=== PATIENT | female | born 1970 | race Caucasian/White ===

== ENCOUNTER → 2017-05-07 06:55 | Outpatient (CLI) | payer OTHER, SELFPAY ==
--- NOTE | 2017-05-07 10:18 | NEURO ---
NCS and/or EMG Patient Report Ordering Doctor: Brian Aldrich DATE OF SERVICE: 05/07/17 This is a left upper extremity EMG and nerve conduction study performed on this 47-year-old female with remote bilateral carpal tunnel repair, for the past year while asleep she awakens with a cold numb left arm associated with swelling. Digits 4 and 5 on the left arm are affected with numbness and tingling as well as pain in the elbow. She is healthy with no history of diabetes. Does have some neck discomfort but denies overt neck pain. Left upper extremity sensory and motor nerve conduction studies performed demonstrating mild prolongation of the median motor distal latency with preservation of amplitude and conduction velocity. The median sensory responses normal. The ulnar motor and sensory responses normal and the radial sensory responses normal. The ulnar F wave is mildly prolonged. Left upper extremity needle electromyography is performed. Muscles evaluated included the first dorsal interosseous, adductor digitorum brevis, brachioradialis, biceps, triceps and deltoid muscles. All muscles demonstrated normal insertional activity with absence of pathologic spontaneous activity. Motor unit potential recruitment pattern and amplitude was normal. 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
== END ==
PROVIDERS: Family Provider Family Medicine; PCP Family Medicine; Visit Provider Family Medicine
DX: R20.2 Paresthesia of skin (principal)
CPT/HCPCS: 95886; 95909

== ENCOUNTER → 2019-08-02 15:35 | Outpatient (CLI) | payer OTHER, SELFPAY ==
[2015-02-01 20:09] VITALS: BMI 46.4
[2019-08-02 17:49] LABS: Absolute Lymphocyte Count 1.68 X10^3/uL (0.83-4.51); Absolute Neutrophil Count 4.2 X10^3/uL (2.0-7.7); Basophil# 0.03 X10^3/uL; Basophil% 0.5 % (0-1); Eosinophil# 0.28 X10^3/uL; Eosinophils% 4.2 % (0-5); Hematocrit 38.9 % (37-47); Lymphocyte # 1.68 X10^3/ul (4.0); Lymphocyte % 25.3 % (19-41); Mean Corp Hgb Conc 33.4 g/dL (32-36); Mean Corpuscular Hgb 28.6 pg (27.0-32.0); Mean Corpuscular Volume 85.7 fL (81-99); Mean Platelet Vol. 10.6 fl (6.2-12.0); Monocyte# 0.41 X10^3/uL; Monocyte% 6.2 % (0-10); NRBC Flagged by Analyzer 0 % (0-5); Neutrophil # 4.19 X10^3/uL (2.7-7.7); Neutrophil % 63.2 % (47-70); Platelet Count 323 K/mm3 (150-450); RBC Distribution Width CV 13.3 % (11.6-14.6); RBC Distribution Width SD 40.7 fl (35.1-43.9); Red Blood Count 4.54 M/mm3 (4.2-5.4); White Blood Count 6.6 K/mm3 (4.4-11.0)
[2019-08-02 18:16] LABS: T3 Total - Triiodothyronine 1.29 ng/mL (0.6-1.81); Vitamin D,25 Hydroxy 23.8 ng/mL
[2019-08-02 18:19] LABS: Ferritin 55 ng/mL (8-252); Free T3 2.9 pg/mL (2.18-3.98); T4 Free Direct 1.12 ng/dL (0.76-1.46); Thyroid Stim Hormone (TSH) 1.06 uIU/mL (0.358-3.74)
== END ==
PROVIDERS: PCP Family Medicine; Visit Provider Family Medicine
DX: R73.9 Hyperglycemia, unspecified (principal); E55.9 Vitamin D deficiency, unspecified; L65.9 Nonscarring hair loss, unspecified; D64.9 Anemia, unspecified
CPT/HCPCS: 36415; 82306; 82728; 84436; 84439; 84443; 84480; 84481; 85025

== ENCOUNTER 2019-09-01 13:04 | Outpatient (RCR) | payer OTHER, SELFPAY | END 2019-09-17 23:59 | LOC: DC 13:04 | PROVIDERS: PCP Family Medicine; Visit Provider Family Medicine | DX: Z71.3 Dietary counseling and surveillance (principal); E11.9 Type 2 diabetes mellitus without complications | CPT/HCPCS: G0108 ==

== ENCOUNTER 2019-10-06 13:00 | Outpatient (RCR) | payer OTHER, SELFPAY ==
[2015-02-01 20:09] VITALS: BMI 46.4
== END 2019-10-18 23:59 ==
LOC: DC 13:00
PROVIDERS: PCP Family Medicine; Visit Provider Family Medicine
DX: Z71.3 Dietary counseling and surveillance (principal); E11.9 Type 2 diabetes mellitus without complications
CPT/HCPCS: 97802; G0108

== ENCOUNTER 2019-10-20 13:26 | Outpatient (RCR) | payer OTHER, SELFPAY ==
[2015-02-01 20:09] VITALS: BMI 46.4
== END 2019-10-20 23:59 | disposition home or self-care (01) ==
LOC: DC 13:26
PROVIDERS: PCP Family Medicine; Visit Provider Family Medicine
DX: Z71.3 Dietary counseling and surveillance (principal); E11.9 Type 2 diabetes mellitus without complications
CPT/HCPCS: 97803

== ENCOUNTER 2022-01-04 08:33 | Outpatient (CLI) | payer BC, SELFPAY ==
[2022-01-04 09:59] LABS: Absolute Lymphocyte Count 1.64 X10^3/uL (0.83-4.51); Absolute Neutrophil Count 5.3 X10^3/uL (2.0-7.7); Basophil# 0.04 X10^3/uL; Basophil% 0.5 % (0-1); Eosinophils% 2.6 % (0-5); Hemoglobin 13.1 g/dL (12.0-15.0); Lymphocyte # 1.64 X10^3/ul (0.83-4.51); Lymphocyte % 21.4 % (19-41); Mean Corp Hgb Conc 32.8 g/dL (32-36); Mean Corpuscular Hgb 27.5 pg (27.0-32.0); Mean Corpuscular Volume 83.9 fL (81-99); Mean Platelet Vol. 10.9 fl (6.2-12.0); Monocyte# 0.46 X10^3/uL; NRBC Flagged by Analyzer 0 % (0-5); Neutrophil # 5.29 X10^3/uL (2.7-7.7); Platelet Count 290 K/mm3 (150-450); RBC Distribution Width CV 13.7 % (11.6-14.6); RBC Distribution Width SD 41.6 fl (35.1-43.9); Red Blood Count 4.77 M/mm3 (4.2-5.4); White Blood Count 7.7 K/mm3 (4.4-11.0)
[2022-01-04 10:30] LABS: Microalbumin,Random Urine 9.5 mg/L (NO RANGE EST.); Microalbumin:Creatinine Ratio 21.2 mg/g CRE (<30 mg/g CRE)
[2022-01-04 10:43] LABS: ALB/GLOB Ratio 0.8 RATIO (0.9-2.4); AST(SGOT) 12 U/L (15-37); Alanine Aminotransfer ALT/SGPT 29 U/L (13-56); Albumin, Serum 3.3 g/dL (3.2-5.0); Alkaline Phosphatase 95 U/L (45-117); Anion Gap 7 (5-15); BUN 12 mg/dL (7-18); Calcium,Total 8.6 mg/dL (8.5-10.1); Chloride 105 mmol/L (98-107); Cholesterol 152 mg/dL (200); Creatinine, Serum 0.67 mg/dL (0.55-1.02); EST Glomerular Filtration Rate 99 mL/min (>60); Est Glom Filt Rate - Afr Amer 120 mL/min (>60); Glucose 148 mg/dL (74-106); High Density Lipoprotein 43 mg/dL; Potassium 4.2 mmol/L (3.5-5.1); Protein, Total 7.3 g/dL (6.4-8.2); Sodium Level 137 mmol/L (136-145); Thyroid Stim Hormone (TSH) 1.17 uIU/mL (0.358-3.74); Triglycerides 125 mg/dL; Very Low Density Lipoprotein 25 mg/dL (5-40)
[2022-01-04 13:47] LABS: Vitamin D,25 Hydroxy 24.9 ng/mL
== END 2022-01-04 23:59 | disposition home or self-care (01) ==
LOC: MTLAB 08:36
PROVIDERS: PCP Family Medicine; Referring Provider Family Medicine; Visit Provider Family Medicine
DX: Z00.00 Encounter for general adult medical examination without abnormal findings (principal); E11.9 Type 2 diabetes mellitus without complications; E55.9 Vitamin D deficiency, unspecified
CPT/HCPCS: 36415; 80053; 80061; 82043; 82306; 82570; 84443; 85025

== ENCOUNTER → 2022-12-24 | Outpatient (CLI) | payer BC, SELFPAY ==
[2022-12-24 12:17] LABS: Absolute Lymphocyte Count 1.54 X10^3/uL (0.83-4.51); Absolute Neutrophil Count 5.5 X10^3/uL (2.0-7.7); Basophil# 0.02 X10^3/uL; Basophil% 0.3 % (0-1); Eosinophil# 0.17 X10^3/uL; Eosinophils% 2.2 % (0-5); Hematocrit 39.6 % (37-47); Lymphocyte # 1.54 X10^3/ul (0.83-4.51); Lymphocyte % 19.9 % (19-41); Mean Corp Hgb Conc 32.8 g/dL (32-36); Mean Corpuscular Hgb 28.3 pg (27.0-32.0); Mean Corpuscular Volume 86.1 fL (81-99); Mean Platelet Vol. 10.8 fl (6.2-12.0); Monocyte# 0.43 X10^3/uL; Monocyte% 5.6 % (0-10); NRBC Flagged by Analyzer 0 % (0-5); Neutrophil # 5.53 X10^3/uL (2.7-7.7); Neutrophil % 71.6 % (47-70); Platelet Count 279 K/mm3 (150-450); RBC Distribution Width CV 13.9 % (11.6-14.6); RBC Distribution Width SD 42.8 fl (35.1-43.9); White Blood Count 7.7 K/mm3 (4.4-11.0)
[2022-12-24 12:56] LABS: ALB/GLOB Ratio 0.8 RATIO (0.9-2.4); AST(SGOT) 12 U/L (15-37); Alanine Aminotransfer ALT/SGPT 23 U/L (13-56); Alkaline Phosphatase 84 U/L (45-117); Anion Gap 5 (5-15); BUN 9 mg/dL (7-18); Calcium,Total 8.4 mg/dL (8.5-10.1); Chloride 105 mmol/L (98-107); Cholesterol 118 mg/dL (200); Creatinine, Serum 0.64 mg/dL (0.55-1.02); EST Glomerular Filtration Rate 103 mL/min (>60); Est Glom Filt Rate - Afr Amer 125 mL/min (>60); Globulin 3.6 g/dL (2.2-4.2); Glucose 233 mg/dL (74-106); High Density Lipoprotein 41 mg/dL; Potassium 4.8 mmol/L (3.5-5.1); Protein, Total 6.6 g/dL (6.4-8.2); Sodium Level 136 mmol/L (136-145); Thyroid Stim Hormone (TSH) 1.14 uIU/mL (0.358-3.74); Triglycerides 159 mg/dL; Very Low Density Lipoprotein 32 mg/dL (5-40)
== END | disposition home or self-care (01) ==
LOC: BFHLAB 09:03
PROVIDERS: PCP Family Medicine; Visit Provider Family Medicine
DX: Z00.00 Encounter for general adult medical examination without abnormal findings (principal); E11.9 Type 2 diabetes mellitus without complications
CPT/HCPCS: 36415; 80053; 80061; 84443; 85025

== ENCOUNTER 2023-05-15 06:27 | Day surgery (SDC) | payer BC, SELFPAY ==
--- NOTE | 2023-05-06 07:37 | EKG12_ITS ---
Test Reason : PREOP Blood Pressure : / mmHG Vent. Rate : 085 BPM Atrial Rate : 085 BPM P-R Int : 152 ms QRS Dur : 076 ms QT Int : 376 ms P-R-T Axes : 056 -02 025 degrees QTc Int : 447 ms Normal sinus rhythm Normal ECG Confirmed by PEBBLES MOON, JUAN ([id number]), scientific publications editor ANNALEE ESPINOZA ([id number]) on 05/07/2023 8:25:55 AM Referred By: Marty Mike Confirmed By:JUAN ROGEL MD
[2023-05-06 08:13] LABS: Absolute Lymphocyte Count 1.56 X10^3/uL (0.83-4.51); Basophil# 0.03 X10^3/uL; Basophil% 0.5 % (0-1); Eosinophil# 0.22 X10^3/uL; Eosinophils% 3.5 % (0-5); Hematocrit 37.8 % (37-47); Hemoglobin 12.4 g/dL (12.0-15.0); Lymphocyte # 1.56 X10^3/ul (0.83-4.51); Lymphocyte % 25.1 % (19-41); Mean Corp Hgb Conc 32.8 g/dL (32-36); Mean Corpuscular Hgb 27.7 pg (27.0-32.0); Mean Corpuscular Volume 84.6 fL (81-99); Mean Platelet Vol. 10.8 fl (6.2-12.0); Monocyte# 0.38 X10^3/uL; Monocyte% 6.1 % (0-10); NRBC Flagged by Analyzer 0 % (0-5); Neutrophil % 64.3 % (47-70); Platelet Count 311 K/mm3 (150-450); RBC Distribution Width CV 13.4 % (11.6-14.6); RBC Distribution Width SD 41.4 fl (35.1-43.9); Red Blood Count 4.47 M/mm3 (4.2-5.4); White Blood Count 6.2 K/mm3 (4.4-11.0)
[2023-05-06 08:32] LABS: Hemoglobin A1c 7.1 % (3.8-5.6)
[2023-05-06 08:34] LABS: Anion Gap 6 (5-15); BUN 10 mg/dL (7-18); BUN/Creat Ratio 12.6 RATIO (10-20); Calcium,Total 8.8 mg/dL (8.5-10.1); Chloride 108 mmol/L (98-107); EST Glomerular Filtration Rate 81 mL/min (>60); Est Glom Filt Rate - Afr Amer 98 mL/min (>60); Glucose 271 mg/dL (74-106); Potassium 4.1 mmol/L (3.5-5.1); Sodium Level 138 mmol/L (136-145)
[2023-05-15] VITALS (10 sets, daily range): BP systolic 113–151; BP diastolic 62–89; PULSE 86–109; RESP 16–18; TEMP 36.2–36.4; O2SAT 93–96; BMI 44.5
[2023-05-15] MEDS: Lactated Ringers 1,000 ML 15 ML IV ×2 (07:03→09:50)
[2023-05-15 07:07] LABS: Internal QC Validated? YES +Cl - CLEAR BKGD
[2023-05-15 07:08] LABS: Pregnancy, Urine Negative Negative
[2023-05-15] MEDS: Cefazolin 2 GM in 0.9% Normal Saline (100mL Bag) 100 ML IV (08:13)
[2023-05-15 08:27] LABS: Bedside Glucose 146 mg/dL (74-106)
--- NOTE | 2023-05-15 09:22 | PCM.OPRPT ---
Report of Operation Date of Procedure: 05/15/23 Description of Surgical Findings:: Preoperative diagnosis: Right elbow lateral epicondylitis Postoperative diagnosis: Right elbow lateral epicondylitis Procedure: Right elbow lateral epicondylar debridement Surgeon: Marty Mike DO public health assistant: Verónica Courtney PA-C Anesthesia General LMA with supraclavicular block Ctrs: Stevie Paige CRNA Estimated blood loss: 10 cc Urine output: None recorded IV fluids: Per anesthesia record Specimen: None Complications: None apparent Implants: None Packing/drains: None Indications: This is a 53-year-old female seen in the outpatient setting for recalcitrant right lateral epicondylitis that unfortunately is failed extensive physical therapy, home exercise, corticosteroid injections. We discussed surgical intervention for a lateral epicondylar debridement. I reviewed the risks, benefits, alternatives to procedure with the patient and she agreed to proceed. Risks included but were not limited to bleeding, infection, loss of life or limb, nonhealing tendon or wounds, persistent pain, stiffness, neurovascular injury, DVT or PE. Patient expressed understanding of these risks and wished to proceed with surgery. Procedure details: Patient was greeted in the same-day surgery holding area. She was identified by name, medical record number, and date of . The operative extremity was marked. All questions were answered to the patient's satisfaction. A supraclavicular block was then administered by anesthesia staff prior to the procedure. At time of her procedure, patient was brought the operative suite positioned supine a standard operating table. Hand table was attached to patient's right side. A well-padded pneumatic tourniquet was applied to the right upper arm. General anesthesia was induced and LMA was placed. We spun the bed 90 degrees. We prepped and draped the right upper extremity in normal, sterile orthopedic fashion. We performed timeout with all parties in attendance in agreement with the side, site, operation be performed. No concerns voiced elected proceed with surgery. 2 g Ancef was administered IV prior to tourniquet placed by anesthesia staff. I first exsanguinated the right upper extremity with Esmarch bandage. Tourniquet inflated to 250 mmHg which made up for 18 minutes. Esmarch was removed. Standard longitudinal approach overlying the anterior radiocapitellar joint was made sharply through skin and subcutaneous tissue approximately 3 cm in length. Full-thickness skin flaps were developed down to the level of the common extensor origin fascia. The interval between the extensor digitorum commonness and extensor carpi radialis longus was identified. Fascia was split. I then developed the interval and identify the underlying extensor carpi radialis brevis tendon. Difficult tendon attic appearance is noted of the ECRB near its insertion. Approximately 1 cm of the tendon attic portion of the ECRB was then sharply excised with a 15 blade scalpel. The underlying joint capsule was left intact. The epicondylar attachment was debrided with a combination of rasp and rongeur. I then performed microfracture at the insertion point with a 0.045 inch K wire with several perforations. Wound was copiously irrigated normal saline solution. I reapproximated the fascial interval with a running, locking 0 Vicryl suture. Tourniquet was deflated. Hemostasis was achieved with Bovie cautery. Fatty layer was reapproximated with interrupted [id number] 0 Vicryl suture. Dermis was reapproximated with a buried 3-0 Vicryl suture. Skin was finally reapproximated with a subcuticular 4-0 Monocryl and Dermabond. A bulky sterile compression dressing was applied. A well-padded short arm wrist splint was applied with the wrist slightly in extension. Soft dressing was applied to the elbow. Patient was awoken from anesthesia. She was safely extubated and transferred to her gurney and then subsequently to PACU in stable condition. Need for skilled child and youth program assistant: Verónica Courtney PA-C was critical to the outcome of the case. During the course of the procedure the physician child and youth program assistant played a vital role. Her intimate knowledge of my steps in the procedure aided in safe and expedient completion of the procedure. The PA played a vital role in positioning particularly in obtaining the appropriate positioning. The PA was also vital in the retraction of soft tissues during the exposure and protecting vital structures. She also played a vital role in closure and splint application with my direct supervision. Postoperative plan: Nonweightbearing to the operative extremity. Gentle range of motion as tolerated to the elbow. Maintain wrist splint until follow-up. She may remove the elbow dressing in 3 days. She is okay to shower but must cover the wrist splint. She will follow-up in 2 weeks for wound check, splint removal. We will initiate physical therapy in 2 weeks. Prescription for hydrocodone provided. Tylenol and ibuprofen encouraged. Aspirin 81 mg twice daily for DVT prophylaxis x 14 days starting on postoperative day #1.
[2023-05-15 09:39] LABS: Bedside Glucose 126 mg/dL (74-106)
== END 2023-05-15 11:32 | disposition home or self-care (01) ==
LOC: SDC 06:28 → AC 06:29
PROVIDERS: Anesthesiology; PCP Family Medicine; Referring Provider Student in an Organized Health Care Education/Training Program; Visit Provider Student in an Organized Health Care Education/Training Program
PROC: (CPT 24357; principal; 2023-05-15 07:50)
DX: M77.11 Lateral epicondylitis, right elbow (principal); E11.9 Type 2 diabetes mellitus without complications; Z87.448 Personal history of other diseases of urinary system; Z90.49 Acquired absence of other specified parts of digestive tract; Z90.5 Acquired absence of kidney
CPT/HCPCS: 24359; 01712; 36415; 80048; 81025; 82962; 83036; 85025; 93005; J7120; J2405

== ENCOUNTER → 2023-08-11 | Outpatient (CLI) | payer BC, SELFPAY ==
--- NOTE | 2023-08-11 07:48 | BI_ITS ---
MAMMOGRAPHY - BILATERAL SCREENING REASON FOR EXAM: Female, 53 years old. Routine annual screening examination. PERTINENT HISTORY: Non-contributory. TECHNIQUE: Digital bilateral breast ricardo (3D mammographic acquisition) in the CC and MLO projections. 2-D mediolateral oblique (MLO) and craniocaudad (CC) views of both breasts were obtained. CAD: Full Field Digital Mammography with Computer Added Detection was performed. COMPARISON: Comparison is made with prior outside examination dated February 04, 2019. FINDINGS: Breast Composition: There are scattered areas of fibroglandular density. There are no dominant masses or suspicious calcifications. Stable fat-containing bilateral axillary lymph nodes. No other significant abnormalities are identified. There has been no significant change since the prior study. BI/SCRN MAMM (CAD)W/RICARDO BILAT IMPRESSION: Stable bilateral screening mammogram. Yearly follow-up mammogram recommended. (A) ASSESSMENT CATEGORY: BIRADS Category 2: Benign. A letter regarding these results will be sent to the patient by the facility within 30 days. Approximately 10% of breast cancers are not detected by mammography. A normal mammogram should not delay biopsy of a clinically suspicious abnormality. [id number] Electronically Signed: Atif Bermeo MD at 9:32 EDT ,
== END | disposition home or self-care (01) ==
LOC: OPBI 07:46
PROVIDERS: PCP Family Medicine; Referring Provider Family Medicine; Visit Provider Family Medicine
DX: Z12.31 Encounter for screening mammogram for malignant neoplasm of breast (principal)
CPT/HCPCS: 77063; 77067

== ENCOUNTER 2023-10-07 19:57 | Emergency (ER) | payer BC, SELFPAY ==
[2023-10-07 19:58] VITALS: BP 169/87; PULSE 94; RESP 18; TEMP 35.9; O2SAT 100; BMI 47.0
--- NOTE | 2023-10-07 21:28 | EX.ED.GENINJ ---
HPI History of Present Illness Chief Complaint: Bite Informant: patient Onset/Context/Timing Onset: Today Quality of Pain: Stabbing and Throbbing Location: Bilateral ears and bilateral calves Worsened by: Nothing Relieved by: Nothing Associated Symptoms Associated Symptoms: Negative for Parasthesias, Weakness, Loss of function, Inability to ambulate, Loss of consciousness or Amnesia Narrative Narrative: Patient presents with multiple yellowjacket stings that occurred today. Patient states he was mowing the yard when she went over a nest. Patient states she was stung on both the ears and both calves. Patient denies any difficulty breathing or difficulty swallowing. Patient states her pain is stabbing and throbbing. Patient states it waxes and wanes. Patient states nothing makes it better and nothing makes it worse. Patient is unsure of her last tetanus. Patient denies any fevers or chills. Patient denies any chest pain. PFSH PFSH Medical History Tennis elbow Diabetes History of renal disease Non-smoker Home Medications ?Medication ?Instructions ?Recorded ?Last Taken ?Type albuterol sulfate 90 mcg/actuation 1 - 2 puff inhalation Q4H PRN PRN 02/03/15 Unknown Rx aerosol inhaler (Ventolin HFA) Sob &/Or Wheezing ##1 dulaglutide 3 mg/0.5 mL 3 mg subcut GUEVARA 05/09/23 05/11/23 History subcutaneous pen injector (Trulicity) ascorbate calcium (vitamin C) 500 500 mg PO DAILY 05/15/23 05/10/23 History mg tablet cholecalciferol (vitamin D3) 25 25 mcg PO BID 05/15/23 05/10/23 History mcg (1,000 unit) tablet (Vitamin D3) floragen PO DAILY womens probiotic 05/15/23 05/10/23 History Allergy/AdvReac Type Severity Reaction Status Date / Time hydrocodone bitartrate (From AdvReac Nausea/Vom/ Verified 10/07/23 19:58 Vicodin) Diarrhea Surgical History History of bilateral carpal tunnel release History of decompression of ulnar nerve History of History of kidney removal History of tonsillectomy History of cholecystectomy Social History Smoking Status: Never smoker ROS ROS ED Constitutional Constitutional ED: Denies chills or fever(s) Eyes Eyes: Denies blurry vision or change in vision ENT ENT ED: Denies rhinorrhea or sore throat Cardiovascular Cardiovascular: Denies chest pain or palpitations Respiratory/Chest Respiratory/Chest: Denies cough or dyspnea Gastrointestinal Gastrointestinal: Denies nausea or vomiting Genitourinary Genitourinary ED: Denies dysuria or hematuria Musculoskeletal Musculoskeletal: Denies back pain or neck pain Integumentary Denies abscess or rash Neurologic Neurologic: Reports headache(s); Denies weakness Allergic/Immunologic Allergic/Immunologic ED: Denies mouth swelling or urticaria EXAM Physical Exam Const Vital Signs: 10/07/23 19:58 Temperature 96.7 F L Temperature Source Temporal Pulse Rate 94 Respiratory Rate 18 Blood Pressure 169/87 H Blood Pressure Mean 114 Pulse Ox 100 Oxygen Delivery Method Room Air Positive well nourished and well developed General Appearance ED: well developed and NAD Neck full ROM Neuro oriented x3, CN's II-XII intact bilaterally, moves all extremities, no focal motor deficits and no sensory deficits noted [place] Coma Scale: document GCS findings Spontaneous Obeys Commands Oriented 15 Sensorium / Orientation: alert Motor Exam: strength 5/5 throughout Psych mental status grossly normal and thought process normal Skin Skin Narrative: There is edema and erythema of the external ears bilaterally. There is mild warmth. There is no vesicles or pustules noted. There are no stingers noted. There is tenderness over the ears bilaterally. There is also some mild erythema over the calves bilaterally. There is no tenderness over these sting sites. There is no evidence of any abscess. There is no fluctuance or drainage noted. MDM MDM MDM Narrative Medical decision making narrative: Patient was advised that these are local reactions to multiple bee stings and not an allergic reaction. Patient was given a dose of Benadryl and ibuprofen here. Patient was given a tetanus booster. Patient was instructed to use [id number]-[id number] Benadryl and ibuprofen as needed for pain and swelling. Patient was instructed to use ice to the area. Patient was instructed to follow-up with her primary care physician in 5 to 7 days. Patient understood and was agreeable with the plan. All questions were answered. Discharge Plan Triage Chief Complaint: Bite ED Provider: Dung Rodriguez Dx/Rx/DC Orders Clinical Impression: Local reaction to hymenoptera sting, Type 2 diabetes mellitus Instructions: ED Insect Sting, Local Reaction Prescriptions: No Action albuterol sulfate [Ventolin HFA] 1 INHALER inhaler 1 - 2 puff inhalation Q4H PRN PRN (Reason: Sob &/Or Wheezing) Qty: 1 0RF Patient Comments: helps breathing Trulicity 3 mg/0.5 mL pen injector 3 mg subcut GUEVARA Patient Comments: TAKES ON SUNDAYS cholecalciferol (vitamin D3) [Vitamin D3] 25 mcg (1,000 unit) tablet 25 mcg PO BID floragen PO DAILY ascorbate calcium (vitamin C) 500 mg tablet 500 mg PO DAILY Primary Care Provider: Brian Aldrich Referrals: Brian Aldrich DO [Primary Care Provider] - 5-7 Days Print Language: Divehi Disposition Disposition: Home, Self Care
[2023-10-07] MEDS: Ibuprofen 400 MG Tablet 800 MG PO (21:34)
[2023-10-07] MEDS: Diphth,Pertuss(Acell),Tet Vac 0.5 ML Vial IM (21:34)
[2023-10-07] MEDS: DiphenhydrAMINE 25 MG Capsule PO (21:34)
[2023-10-07 21:49] VITALS: BP 174/98; PULSE 94; RESP 87; TEMP 36.1; O2SAT 94
== END 2023-10-07 21:51 | disposition home or self-care (01) ==
PROVIDERS: Emergency Provider Emergency Medicine; PCP Family Medicine; Visit Provider Emergency Medicine
DX: H92.03 Otalgia, bilateral (principal); E11.9 Type 2 diabetes mellitus without complications; Z79.85 Long-term (current) use of injectable non-insulin antidiabetic drugs; Z90.49 Acquired absence of other specified parts of digestive tract; Z23 Encounter for immunization; T63.481A Toxic effect of venom of other arthropod, accidental (unintentional), initial encounter; M79.661 Pain in right lower leg; M79.662 Pain in left lower leg
CPT/HCPCS: 90715; 99282

== ENCOUNTER → 2024-01-21 | Outpatient (CLI) | payer BC, SELFPAY ==
--- NOTE | 2024-01-21 16:06 | RAD_ITS ---
HISTORY: Early satiety, chronic nausea. TECHNIQUE: XR Abdomen 1 View. COMPARISON: None. FINDINGS: BOWEL GAS PATTERN: No dilated bowel loops identified. Moderate stool in the colon. FREE AIR: Not assessed on supine view. CALCIFICATIONS: Small pelvic phleboliths observed. BONES: Mild degenerative change. SOFT TISSUES: Right upper quadrant surgical clips. Enlarged liver. RAD/Abdomen Single View IMPRESSION: Moderate stool in the colon. Hepatomegaly. Electronically Signed: Naina Cordoba MD at 9:08 EST ,
[2024-01-21 17:55] LABS: Absolute Lymphocyte Count 2.18 X10^3/uL (0.83-4.51); Basophil# 0.03 X10^3/uL; Basophil% 0.4 % (0-1); Eosinophil# 0.25 X10^3/uL; Eosinophils% 3.1 % (0-5); Hematocrit 38.1 % (37-47); Hemoglobin 12.4 g/dL (12.0-15.0); Lymphocyte # 2.18 X10^3/ul (0.83-4.51); Lymphocyte % 27.2 % (19-41); Mean Corp Hgb Conc 32.5 g/dL (32-36); Mean Corpuscular Hgb 27.4 pg (27.0-32.0); Mean Corpuscular Volume 84.1 fL (81-99); Monocyte# 0.52 X10^3/uL; Monocyte% 6.5 % (0-10); NRBC Flagged by Analyzer 0 % (0-5); Neutrophil # 5.02 X10^3/uL (2.7-7.7); Neutrophil % 62.6 % (47-70); Platelet Count 321 K/mm3 (150-450); RBC Distribution Width CV 14.3 % (11.6-14.6); RBC Distribution Width SD 44.1 fl (35.1-43.9); Red Blood Count 4.53 M/mm3 (4.2-5.4)
[2024-01-21 18:26] LABS: ALB/GLOB Ratio 0.9 RATIO (0.9-2.4); AST(SGOT) 17 U/L (15-37); Alanine Aminotransfer ALT/SGPT 32 U/L (13-56); Albumin, Serum 3.6 g/dL (3.2-5.0); Alkaline Phosphatase 103 U/L (45-117); Anion Gap 8 (5-15); BUN 11 mg/dL (7-18); BUN/Creat Ratio 17.3 RATIO (10-20); Calcium,Total 9.3 mg/dL (8.5-10.1); Chloride 104 mmol/L (98-107); Creatinine, Serum 0.64 mg/dL (0.55-1.02); EST Glomerular Filtration Rate 104 mL/min (>60); Est Glom Filt Rate - Afr Amer 126 mL/min (>60); Globulin 3.9 g/dL (2.2-4.2); Glucose 120 mg/dL (74-106); Lipase 32 U/L (13-75); Potassium 3.6 mmol/L (3.5-5.1); Protein, Total 7.5 g/dL (6.4-8.2); Sodium Level 137 mmol/L (136-145)
== END | disposition home or self-care (01) ==
LOC: MTRAD 16:02
PROVIDERS: PCP Family Medicine; Referring Provider Family Medicine; Visit Provider Family Medicine
DX: R68.81 Early satiety (principal); R10.9 Unspecified abdominal pain
CPT/HCPCS: 36415; 74018; 80053; 83690; 85025

== ENCOUNTER 2024-04-22 20:13 | Emergency (ER) | payer BC, SELFPAY ==
[2024-04-22 20:13] VITALS: BP 146/87; PULSE 94; RESP 16; TEMP 36.6; O2SAT 99; BMI 47.2
--- NOTE | 2024-04-22 20:39 | RAD_ITS ---
PROCEDURE: PELVIS 1 OR 2 VIEWS REASON FOR EXAM: Status post fall. Pain TECHNIQUE: 1 view(s) of the pelvis. COMPARISON: None FINDINGS: No fracture. No suspicious bone lesion. Normal alignment at the hips and sacroiliac joints. Soft tissues are unremarkable. RAD/Pelvis 1 or 2 Views IMPRESSION: NEGATIVE PELVIS Reading Location: [facility]
[2024-04-22] MEDS: Ondansetron ODT 4 MG Tablet PO ×2 (20:48→23:36)
[2024-04-22] MEDS: HYDROcodone Bitartrate/Apap 5/325 Tablet PO (20:48)
--- NOTE | 2024-04-22 20:55 | RAD_ITS ---
PROCEDURE: FEMUR MIN 2 VIEWS REASON FOR EXAM: Pain TECHNIQUE: 4 view(s) of the left femur. COMPARISON: None. FINDINGS: No fracture. No suspicious bone lesion. Normal alignment at the hip and knee. Soft tissues are unremarkable. RAD/Femur Min 2 Views IMPRESSION: NEGATIVE FEMUR Reading Location: [facility]
--- NOTE | 2024-04-22 21:04 | EX.ED.DYSGE1 ---
HPI History of Present Illness Chief Complaint: Lower Extremity Injury Narrative Narrative: Patient is a 54-year-old female with past medical history of diabetes who presents to the emergency department the chief complaint of right leg pain. Patient states that earlier this evening she was in the shower shaving her legs in preparation for her returning from [place] when the bar gave out causing her to fall. She states that she fell she did not hit her head she did not pass out she denies any blood thinner medications. She states that the pain is mainly right below her buttock region on the posterior aspect. Patient states that she called EMS to be brought here further evaluation management. Patient rates her pain a 9 out of 10. PFSH PFSH Medical History Tennis elbow Diabetes History of renal disease Non-smoker Home Medications ?Medication ?Instructions ?Recorded ?Last Taken ?Type albuterol sulfate 90 mcg/actuation 1 - 2 puff inhalation Q4H PRN PRN 02/03/15 Unknown Rx aerosol inhaler (Ventolin HFA) Sob &/Or Wheezing ##1 dulaglutide 3 mg/0.5 mL 3 mg subcut GUEVARA 05/09/23 05/11/23 History subcutaneous pen injector (Trulicity) ascorbate calcium (vitamin C) 500 500 mg PO DAILY 05/15/23 05/10/23 History mg tablet cholecalciferol (vitamin D3) 25 25 mcg PO BID 05/15/23 05/10/23 History mcg (1,000 unit) tablet (Vitamin D3) floragen PO DAILY womens probiotic 05/15/23 05/10/23 History cyclobenzaprine 5 mg tablet 5 mg PO TID PRN muscle spasm #20 04/22/24 Unknown Rx tabs ondansetron 4 mg disintegrating 4 mg PO Q6H PRN nausea and 04/22/24 Unknown Rx tablet vomiting #20 tabs oxycodone-acetaminophen 5 mg-325 1 tab PO Q6H PRN pain 3 days #12 04/22/24 Unknown Rx mg tablet (Percocet) tabs Allergy/AdvReac Type Severity Reaction Status Date / Time hydrocodone bitartrate (From AdvReac Nausea/Vom/ Verified 04/22/24 20:15 Vicodin) Diarrhea Surgical History History of bilateral carpal tunnel release History of decompression of ulnar nerve History of History of kidney removal History of tonsillectomy History of cholecystectomy Social History Smoking Status: Never smoker ROS ROS ED ROS Narrative Constitutional: Denies any fevers, chills, headaches, lightness, dizziness Eyes: Denies change in vision double vision blurry vision Cardiovascular: Denies chest pain or palpitations Respiratory: Denies coughing shortness of breath Abdomen: Denies abdominal pain nausea vomit diarrhea : Denies any urinary symptoms Neurological: Denies numbness, weakness, tingling Musculoskeletal: Complains of right leg pain as noted above Skin: Denies rashes or lesions EXAM Physical Exam Narrative Exam Narrative: General: Patient was lying in bed did appear to be uncomfortable secondary to right leg pain Head: Atraumatic, normocephalic Eyes: PERRL bilateral, EOMI bilateral, no conjunctival injection noted Neck: Soft, supple, trachea midline Cardiovascular: Regular rate and rhythm no murmurs gallops rubs noted Respiratory: Clear to auscultation bilaterally Abdomen: No tenderness palpation, soft, nondistended Musculoskeletal: Patient has some pain with attempted logroll in her right hip region, no tenderness palpation in the right knee and the rest of the right lower extremity. All of the bony prominences palpated joints taken to full range of motion no pain elicited Extremities: DP pulses +2/4 in the bilateral lower extremities, +5/5 strength noted in the bilateral upper extremities and the left lower extremity, +4/5 strength noted in the right lower extremity secondary to pain Neurological: Patient following commands knew that she was at [facility] year is 2024 Skin: Warm, dry, intact no rashes lesions noted Const Vital Signs: 04/22/24 20:13 04/22/24 22:13 Temperature 98 F Temperature Source Temporal Pulse Rate 94 85 Respiratory Rate 16 20 H Blood Pressure 146/87 H 148/79 H Blood Pressure Mean 106 102 Pulse Ox 99 97 Oxygen Delivery Method Room Air Room Air MDM MDM MDM Narrative Medical decision making narrative: Patient is a 54-year-old female who presents to the emergency department the chief complaint of right hip pain. This was after a mechanical fall as noted above. On the differential diagnose includes Melamin to hip fracture, femur fracture, hamstring tear. Once workup is obtained reviewed she will be reevaluated. Patient be given [place] Zofran. Patient's x-rays of her femur reviewed by myself and by radiology showed no acute fracture or dislocation. Patient's x-ray of the pelvis showed no acute findings. This was reviewed by myself and by radiology. On reevaluation she states that she feels like her hamstring is spasming therefore she will be given IM Norflex. On reevaluation the patient she states that she is feeling slightly better but still having pain. Patient be given IM morphine. She states that she follows with [facility] and following with Dr. Mike in the past. Should be given crutches and prescriptions for Percocet Zofran and cyclobenzaprine. She was advised to follow-up with Dr. Mike in the outpatient setting. She was encouraged to rotate Tylenol and ibuprofen ykyrga-gux-teqis and use the narcotic for severe pain she was advised to not operate anything under the influence of these medications the narcotic and cyclobenzaprine. She is agreeable this plan as well as significant other bedside all question concerns answered she is discharged home in stable condition. Radiography Diagnostic Testing: Clinical Impression(s) from Imaging Studies Pelvis X-Ray 04/22/24 20:39 IMPRESSION: NEGATIVE PELVIS [facility] 04/22/24 20:55 IMPRESSION: NEGATIVE FEMUR Reading Location: [facility] Discharge Plan Triage Chief Complaint: Lower Extremity Injury ED Provider: Brant Sahni Dx/Rx/DC Orders Clinical Impression: Right hamstring injury Prescriptions: New oxycodone-acetaminophen [Percocet] 5-325 mg tablet 1 tab PO Q6H PRN (Reason: pain) 3 Days Qty: 12 0RF ondansetron 4 mg tablet,disintegrating 4 mg PO Q6H PRN (Reason: nausea and vomiting) Qty: 20 0RF cyclobenzaprine 5 mg tablet 5 mg PO TID PRN (Reason: muscle spasm) Qty: 20 0RF No Action albuterol sulfate [Ventolin HFA] 1 INHALER inhaler 1 - 2 puff inhalation Q4H PRN PRN (Reason: Sob &/Or Wheezing) Qty: 1 0RF Patient Comments: helps breathing Trulicity 3 mg/0.5 mL pen injector 3 mg subcut GUEVARA Patient Comments: TAKES ON SUNDAYS cholecalciferol (vitamin D3) [Vitamin D3] 25 mcg (1,000 unit) tablet 25 mcg PO BID floragen PO DAILY ascorbate calcium (vitamin C) 500 mg tablet 500 mg PO DAILY Primary Care Provider: Brian Aldrich Referrals: Brian Aldrich DO [Primary Care Provider] - Marty Mike DO [Med Staff - Active Staff] - Activity Restrictions/Additional Instructions: Rotate Tylenol and ibuprofen owibap-sib-ftuky when you do this you can take something every 3 hours for mild to moderate pain. Max dose Tylenol 4000 mg/day and max dose ibuprofen is 3200 mg/day. Use the Percocet and Zofran for severe pain. Do not operate anything under the influence of the Percocet or the cyclobenzaprine as they can make you sleepy. Return with worsening symptoms or concerns. Print Language: Maori Disposition Disposition: Home, Self Care
[2024-04-22] MEDS: Orphenadrine 60 MG/2 ML Ampul IM (22:11)
[2024-04-22 22:13] VITALS: BP 148/79; PULSE 85; RESP 20; O2SAT 97
[2024-04-22] MEDS: morphine 10 MG/ML Syringe IM (23:17)
[2024-04-23 00:01] VITALS: BP 107/74; PULSE 85; RESP 17; TEMP 36.4; O2SAT 99
== END 2024-04-23 00:02 | disposition home or self-care (01) ==
PROVIDERS: Emergency Provider Emergency Medicine; PCP Family Medicine; Referring Provider Emergency Medicine; Visit Provider Emergency Medicine
DX: M25.551 Pain in right hip (principal); E11.9 Type 2 diabetes mellitus without complications; S76.301A Unspecified injury of muscle, fascia and tendon of the posterior muscle group at thigh level, right thigh, initial encounter; W18.2XXA Fall in (into) shower or empty bathtub, initial encounter; Y93.89 Activity, other specified; Z79.85 Long-term (current) use of injectable non-insulin antidiabetic drugs; Z90.49 Acquired absence of other specified parts of digestive tract
CPT/HCPCS: 72170; 73552; 96372; 99285

== ENCOUNTER → 2024-04-26 | Outpatient (CLI) | payer BC, SELFPAY ==
--- NOTE | 2024-04-26 09:56 | VDLE_ITS ---
Reason For Study Reason For Study: RLE Pain RIGHT LEFT GSV is normal. FV is compressible, spontaneous, phasic, competent CFV is compressible, spontaneous, phasic, competent and demonstrates normal augmentation. and demonstrates normal augmentation. FV is compressible, spontaneous, phasic, competent and demonstrates normal augmentation. POP V is compressible, spontaneous, phasic, competent and demonstrates normal augmentation. T/P Trunk is compressible. PTV is compressible. RT PerV is compressible. Procedure This is a venous duplex using B-mode, color flow and spectral Doppler. Exam performed in department. The exam was diagnostic. A preliminary report was called and/or faxed to [facility] / Caity Cooley. VL/Venous Duplex US, Unilateral Interpretation Summary Deep veins of the right lower extremity are patent and compressible segmentally . There is no evidence of right lower extremity deep vein thrombosis. The right great saphenous vein appears patent a nd compressible segmentally. Ordering Physician: Caity Cooley Referring Physician: Brian Aldrich Performed By: Liam Pina RVT
== END | disposition home or self-care (01) ==
PROVIDERS: PCP Family Medicine
DX: M79.661 Pain in right lower leg (principal)
CPT/HCPCS: 93971

== ENCOUNTER → 2024-05-19 | Outpatient (CLI) | payer BC, SELFPAY ==
[2024-05-19 15:21] LABS: Microalbumin,Random Urine < 12.0 mg/L (NO RANGE EST.); Microalbumin:Creatinine Ratio UNABLE TO CALCULATE mg/g CRE
[2024-05-19 16:42] LABS: Cholesterol 166 mg/dL (<=200); High Density Lipoprotein 48 mg/dL; Low Density Lipoprotein Calc. 86 mg/dL; Triglycerides 161 mg/dL; Very Low Density Lipoprotein 32 mg/dL (5-40); cholesterol:hdl ratio screen 3.44
[2024-05-19 17:59] LABS: Hemoglobin A1c 6.4 % (<=5.6)
== END | disposition home or self-care (01) ==
LOC: BFHLAB 08:49
PROVIDERS: PCP Family Medicine; Visit Provider Family Medicine
DX: E11.9 Type 2 diabetes mellitus without complications (principal); I10 Essential (primary) hypertension
CPT/HCPCS: 80061; 82043; 82570; 83036

== ENCOUNTER → 2024-08-13 | Outpatient (CLI) | payer BC, SELFPAY ==
--- NOTE | 2024-08-13 10:43 | BI_ITS ---
EXAM: SCRN MAMM (CAD)W/RICARDO BILAT DATE: 08/13/2024 CLINICAL HISTORY: F, Age 54 y/o , SCREENING TECHNIQUE: SCRN MAMM (CAD)W/RICARDO BILAT COMPARISON: None available FINDINGS: TISSUE DENSITY: There are scattered areas of fibroglandular density. Bilateral Breast Mammographic Findings: No significant masses, calcifications or other abnormalities are identified. BI/SCRN MAMM (CAD)W/RICARDO BILAT IMPRESSION: No mammographic evidence of malignancy in either breast. OVERALL FINAL ASSESSMENT BI-RADS 1: NEGATIVE. RECOMMEND ANNUAL MAMMOGRAPHIC SCREENING. RECOMMENDATION: Routine annual follow-up in 1 Year A letter with findings and recommendations will be mailed to the patient. Reading Location: [id number]
== END | disposition home or self-care (01) ==
LOC: OPBI 10:41
PROVIDERS: PCP Family Medicine; Referring Provider Family Medicine; Visit Provider Family Medicine
DX: Z12.31 Encounter for screening mammogram for malignant neoplasm of breast (principal)
CPT/HCPCS: 77063; 77067